=== PATIENT | female | born 1945 | race Caucasian/White ===

== ENCOUNTER 2017-11-05 14:48 | Emergency (ER) | payer MEDICARE, BC ==
[~2017-11-05] VITALS: Ht 157.5 cm; Wt 95.5 kg
[2017-11-05 15:21] VITALS: BP 147/67; Ht 157.5 cm; Wt 95.5 kg
== END 2017-11-05 17:25 | disposition left against medical advice (07) ==
LOC: D.ER 14:48
DX: M54.9 Dorsalgia, unspecified (principal); M54.2 Cervicalgia; V43.52XA Car driver injured in collision with other type car in traffic accident, initial encounter; Y93.89 Activity, other specified; Y92.410 Unspecified street and highway as the place of occurrence of the external cause

== ENCOUNTER → 2019-10-03 10:49 | Outpatient (CLI) | payer MEDICARE, BC ==
[2017-11-05 15:21] VITALS: BMI 38.5
== END | disposition home or self-care (01) ==
LOC: D.MRI 09-29 09:00
PROVIDERS: ATTEND Psychiatry & Neurology Neurology
DX: G50.0 Trigeminal neuralgia (principal)

== ENCOUNTER 2019-12-12 13:32 | Inpatient (IN) | payer MEDICARE, BC ==
[~2019-12-12] VITALS: Ht 157.5 cm; Wt 104.5 kg
[2019-12-25] MEDS ORDERED: LIPITOR80 MG PO (08:38)
[2019-12-25] MEDS ORDERED: ASPIRIN EC81 M1 PO (08:39)
[2019-12-25] MEDS ORDERED: OMEPRAZOLE20 M1 PO (08:39)
[2019-12-25] MEDS ORDERED: SYNTHROID150 MCG PO (08:39)
[2019-12-25] MEDS ORDERED: VITAMIN D5000 UNI1 PO (08:41)
--- NOTE | 2019-12-25 09:08 | NUR ---
VERAS NOTE: O2SAT 97% P72 R20 T98.3 BP 146/72 LT 128/68 RT
[2019-12-25 10:37] LABS: HEMATOCRIT 42.2 % (36.0-48.0); HEMOGLOBIN 13.4 g/dL (12-16); MCH 28.9 pg (26.0-34.0); MCHC 31.8 g/dL (31.0-37.0); MCV 90.9 fL (80.0-100.0); MEAN PLATELET VOLUME 8.6 fL (7.4-10.4); RBC 4.64 10x6/uL (4.00-5.40); RDW 13.9 % (11.5-14.5); WBC 9.4 10x3/uL (4.8-10.8)
[2019-12-25 10:44] LABS: INR 0.93 (0.85-1.17); PROTIME 12.4 SECONDS (11.6-15.0)
[2019-12-25 10:45] LABS: APTT 25.8 SECONDS (22.8-39.4)
[2019-12-25 10:51] LABS: ALBUMIN 3.7 g/dL (3.4-5.0); ANION GAP 11.8 mmol/L (8-16); BILIRUBIN - TOTAL 0.48 mg/dL (0.2-1.3); CALCIUM 9.2 mg/dL (8.5-10.1); CARBON DIOXIDE 28.2 mmol/L (21.0-32.0); CREATININE - SERUM 0.8 mg/dL (0.6-1.3); PROTEIN - SERUM 7.2 g/dL (6.4-8.2)
[2019-12-25 11:30] LABS: BILIRUBIN NEGATIVE (NEGATIVE); GLUCOSE NEGATIVE (NEGATIVE); KETONE NEGATIVE (NEGATIVE); NITRITE NEGATIVE (NEGATIVE); RED CELLS - URINE RARE /hpf (0-5); UROBILINOGEN NORMAL (NORMAL)
[2019-12-25 11:31] LABS: BACTERIA MODERATE /hpf (NEGATIVE)
[2019-12-26] VITALS (51 sets, daily range): BP systolic 106–162; BP diastolic 53–67; BMI 39.8; BMI 42.3
--- NOTE | 2019-12-26 12:48 | NUR ---
PT ARRIVED TO UNIT AROUND 1239 VIA BED. PLACED ON MONITORS. INCISION TO LEFT NECK WITH DRESSING C/D/I. KASSY DRAIN TO TASHA CHEST. HAS RIGHT SUB CVL WITH NS INFUSING AT 30ML/HR, NITRO AT 5ML/HR, AND CLEVIPREX AT 1MG/HR. OPENS EYES AND FOLLOWS COMMANDS. ON 15L O2 VIA SIMPLE MASK. BELL CATHETER WITH CLEAR YELLOW URINE NOTED. SAFETY MEASURES IN PLACE. WILL CONTINUE TO MONITOR.
--- NOTE | 2019-12-26 13:16 | NUR ---
DR. WANG IN UNIT. ORDERED 2.5 LOPRESSOR IV X ONE AT THIS TIME.
--- NOTE | 2019-12-26 17:00 | NUR ---
NOBLE FLORENTINO AT THIS TIME. TOLERATING ICE CHIPS AND WATER.
--- NOTE | 2019-12-26 22:46 | NUR ---
AFTER INCREASE IN CLEVIPREX BP IS DOWN TO 117/54 (75).
[2019-12-27] VITALS (61 sets, daily range): BP systolic 72–172; BP diastolic 37–84; Ht 157.5 cm; Wt 104.5 kg
--- NOTE | 2019-12-27 06:47 | NUR ---
AT 0617 CHG BATH FINISHED AND BELL CARE COMPLETE. PATIENTS BP WAS 160'S AND 170'S. APRESOLINE GIVEN PER ORDER. AT 0639 PATIENT BP DROPPED TO 79/38 (35) NTG AND CLEVIPREX STOPPED. GIVEN A MINUTE AND TARI STARTED. AT 0647 TARI WAS STOPPED DUE TO PRESSURE INCREASING TO 142/83 (103). PATIENT STATED SHE WAS HAVING PAIN ACROSS STOMACH UNDER BREAST AND NAUSEA. ZOFRAN GIVEN PER MD ORDER.
[2019-12-27 07:10] LABS: BASOPHILS 0.2 % (0-2); EOSINOPHILS 0.4 % (0-7); HEMOGLOBIN 11.5 g/dL (12-16); IMMATURE GRANULOCYTES 0.2 % (0-5); LYMPHOCYTES 25.1 % (15-50); MCHC 31.9 g/dL (31.0-37.0); MCV 90.7 fL (80.0-100.0); MEAN PLATELET VOLUME 8.5 fL (7.4-10.4); MONOCYTES 8.7 % (2-11); NEUTROPHILS 65.4 % (40-80); PLATELET COUNT 233 10x3/uL (130-400); RBC 3.97 10x6/uL (4.00-5.40); RDW 14.1 % (11.5-14.5)
[2019-12-27 07:12] LABS: WBC 12.7 10x3/uL (4.8-10.8)
[2019-12-27 07:32] LABS: CALC OSMOLALITY 278 mosm/kg (275-300); CALCIUM 8.3 mg/dL (8.5-10.1); CHLORIDE - SERUM 105 mmol/L (98-107); CREATININE - SERUM 0.7 mg/dL (0.6-1.3); GLUCOSE 132 mg/dL (74-106); MAGNESIUM - SERUM 1.8 mg/dL (1.8-2.4); PHOSPHOROUS 2.9 mg/dL (2.5-4.9); SODIUM 139 mmol/L (136-145); UREA NITROGEN 10 mg/dL (7-18); eGFR NON AFRICAN AMERICAN 87 mL/min (90-120)
--- NOTE | 2019-12-27 08:00 | NUR ---
ASSESSMENT PERFORMED. BP FLUCTUATING BETWEEN 96 AND 110 SYSTOLIC. CLEVIPRES DECREASED TO 5MCG/MIN. NTG CONTINUES AT 20MCG/MIN, PLASMALYTE AT 30ML/HR TO RIGHT SC CVL. ANTIBIOTIC INFUSION TO LEFT HAND. ART LINE INTACT. BELL CATHETER PRESENT DRAINING CLEAR URINE. SLIGHT SWELLING OF LEFT NECK, DRESSING INTACT, CRANIAL NERVE FUNCTION ASSESSED AND ALL INTACT. SINUS RHYTHM ON MONITOR.
--- NOTE | 2019-12-27 08:05 | NUR ---
CLEVIPLEX STOPPED. BP 93/50.
--- NOTE | 2019-12-27 09:17 | NUR ---
0900 MEDICATIONS GIVEN. REMOVED ONE 20MG TAB ATORVISTATIN INSTEAD OF FOUR. RETURNED TO [facility] TO PULL REMAINING 3 20MG TABS. WHEN EXPLAINING MEDS PATIENT STATED SHE ONLY TAKES 40MG OF ATORVISTATIN DUE TO MUSCLE PAIN. PATIENT TOOK REMAINING MEDS. AFTER PATIENT SWALLOWED THIS NURSE NOTED THAT THE MEDICATION REMOVED ON THE SECOND TRIP TO THE [facility] WAS VENLAFAXINE - NOT ATORVASTATIN. ON INVESTIGATION, THIS NURSE DISCOVERED THAT MEDICATION WAS REMOVED FROM THE WRONG BIN. PATIENT RECEIVED ONE 20MG ATORVISTATIN AND ONE 37.5MG VENLAFAXINE. SECOND ATORVASTATIN 20MG REMOVED AND ADMINISTERED. GLORIA RN, NURSE FOR DR. WANG WAS NOTIFIED OF MEDICATION ERROR. MEDICATION ERROR WAS ALSO EXPLAINED TO THE PATIENT.
--- NOTE | 2019-12-27 10:44 | OP ---
PATIENT NAME: TONNY FRENCH MEDICAL RECORD: [id number] :49 LOCATION:[facility] ADMISSION DATE:12/26/19 SURGEON: JOHN WANG MD DATE OF OPERATION: 12/26/2019 SURGEON: John Wang MD PROCEDURE: Left carotid endarterectomy. PREOPERATIVE DIAGNOSIS: Left carotid stenosis. POSTOPERATIVE DIAGNOSES: Left carotid endarterectomy. ANESTHESIA: General endotracheal anesthesia. ESTIMATED BLOOD LOSS: 20 cc. COMPLICATIONS: None. SPECIMENS: Plaque. CONDITION: Stable. DISPOSITION: CV ICU. OPERATIVE FINDINGS: 1. Calcified and severely stenotic plaque in the proximal internal carotid artery that feathered well distally. The plaque was tacked and a CorMatrix patch was used for closure. 2. Neurologically intact to CV ICU. OPERATIVE INDICATION: Severe carotid stenosis. PROCEDURE IN DETAIL: The patient was brought to the operating suite. General anesthesia was obtained, the patient was prepped and draped. An oblique incision was made in the left neck, taken down through the subcutaneous tissue to several large facial venous branch were divided between ligatures and the large one was divided between suture ligatures. The common carotid was dissected out and encircled with an umbilical tape. External carotid and thyroid branch were dissected out and encircled with vascular tapes and the hypoglossal was kept out of harm's way. The internal carotid was dissected out distally and heparin was given. After the heparin had circulated, backbleeding was controlled with a bulldog clamp and inflow with a vascular clamp and backbleeding of the external carotid and thyroid branch were controlled with vessel loops. EEG and cerebral oximetry remained stable. The 2 minute elsa revealed no change. Therefore, arteriotomy was made into the common carotid artery and the plaque was divided there. Eversion endarterectomy of the external carotid was performed and the plaque feathered well distally. Thorough irrigation was undertaken. All bits of loose debris were removed. The plaque was tacked distally with 7-0 Prolenes. The patch was fashioned to the appropriate size and sutured along the edge of the arteriotomy. Prior to completing the anastomosis, backbleeding was allowed from all 3 major vessels and then thorough irrigation of the endarterectomy bed. Anastomosis completed and flow was restored first to the external carotid and then to the internal carotid. Interrupted sutures were used for hemostasis. Protamine was given. OPERATIVE REPORT [id number] [id number] Thorough irrigation was undertaken. Hemostasis was assured. A drain was placed through a separate stab wound. The neck was then closed in 3 layers including Dermabond on the skin. The patient is neurologically intact and returned to CV ICU. TRANSINT:[id number] Voice Confirmation ID: [id number] DOCUMENT ID: [id number] JOHN WANG MD at 1044 CC: NIRMALA WELLER DO and HERON JEFFERS MD [id number] DICTATION DATE: 12/26/19 1719 STONE GLUER: 12/27/19 0020 ADM IN [facility] [address] [place] [address]
--- NOTE | 2019-12-27 10:45 | NUR ---
DR. WANG HERE. KASSY DRAIN REMOVED. STERILE 4X4 AND TEGADERM DRESSING APPLIED. TNG DRIP DECREASE TO 13.3MCG/MIN.
--- NOTE | 2019-12-27 11:00 | NUR ---
REASSESSMENT PERFORMED. ANTIBIOTIC INFUSION COMPLETE. PIV SITE TO LEFT ANTERIOR HAND AND ARTERIAL LINE TO RIGHT RADIAL D/C'D PER ORDER. HEMOSTASIS ACHIEVED AND DRESSINGS APPLIED. C/O NAUSEA FOLLOWING. HAD A FEW DRY HEAVES. LEFT NECK SWELLING INCREASED. ICE PACK TO NECK AND THROAT.
--- NOTE | 2019-12-27 11:30 | NUR ---
NTG DRIP D/C'S. NIBP 139/73. PER DR. WANG GIVE PRN ANTIHYPERTENSIVES IF NEEDED. IF BP CONTINUES ABOVE 140 SYSTOLIC AFTER PRN CALL.
--- NOTE | 2019-12-27 13:30 | NUR ---
TO BEDSIDE COMMODE TWICE FOR BM. PASSING GAS ONLY.
--- NOTE | 2019-12-27 15:10 | NUR ---
REASSESSMENT COMPLETED. NO CHANGES. NEED FOR BELL CATHETER ASSESSED. PATIENT IS OUT OF BED TO BEDSIDE COMMODE WITH ASSISTANCE. BELL CATHETER NO LONGER REQUIRED FOR ACCURATE I&O. CATHETER REMOVED. INSTRUCTIONS TO PATIENT TO CALL FOR ASSISTANCE TO USE BEDSIDE COMMODE NEEDED.
--- NOTE | 2019-12-27 17:35 | NUR ---
UP TO BSC WITH ASSIST. C/O PAIN TO LEFT JAW. REFUSED PAIN MED AT THIS TIME. ICE PACK TO LEFT NECK THROUGHOUT DAY.
--- NOTE | 2019-12-27 18:00 | NUR ---
BACK TO BE WITHOUT ASSISTANCE. ICE PACK TO LEFT NECK. HOB AT 30 DEGREES. VOIDED 250ML CLEAR URINE.
--- NOTE | 2019-12-27 19:00 | NUR ---
ASSESSMENT COMPLETED PER FLOWSHEET. PT A/OX4, DENIES ANY DISCOMFORT AT THIS TIME. LEFT NECK INCISION DRESSING C,D,I. CONT ICE PACK PT STATES THAT IS HELPING WITH SWELLING. PPP. CALL LIGHT IN REACH. CONT TO MONITOR.
--- NOTE | 2019-12-27 21:00 | NUR ---
ASSISSTED TO BSC. PT VOIDS WITHOUT DIFFIC. PT INES WELL. REPOSITIONED SELF IN BED. CALL LIGHT IN REACH. CPOC.
--- NOTE | 2019-12-27 23:00 | NUR ---
REASSESSMENT COMPLETED. SEE FLOWSHEET FOR ALL FINDINGS. NO ACUTE CHANGES NOTED IN PT'S STATUS. PT C/O PAIN AT INCISION SITE 5/10 ON SCALE. CONT ICE PACK. ULTRAM 1 TAB GIVEN PER ORDER PER PT'S REQUEST. CPOC.
[2019-12-28] VITALS (24 sets, daily range): BP systolic 93–143; BP diastolic 39–79
--- NOTE | 2019-12-28 02:00 | NUR ---
UP TO BEDSIDE COMMODE WITH MINIMAL ASSISTANCE. TOLERATES WELL, NO C/O PAIN. C/O NAUSEA, PRN ZOFRAN REQUESTED. PARTIAL LINEN CHANGE PROVIDED AT THIS TIME. DENIES FURTHER NEEDS.
--- NOTE | 2019-12-28 02:06 | NUR ---
PRN ZOFRAN GIVEN PER ORDER. ICE CHIPS PROVIDED UPON REQUEST. VSS, DENIES FURTHER NEEDS AT THIS TIME. CALL LIGHT AND BEDSIDE TABLE WITHIN PT REACH. CPOC.
--- NOTE | 2019-12-28 03:46 | NUR ---
PT UP IN CHAIR PER REQUEST, VSS, NO C/O PAIN. RESTING COMFORTABLY. SOME SWELLING NOTED TO L NECK, FRESH ICE PACK APPLIED TO AREA. VSS. PT DENIES FURTHER NEEDS AT THIS TIME. CALL LIGHT AND BEDSIDE TABLE WITHIN PT REACH. CPOC.
--- NOTE | 2019-12-28 04:30 | NUR ---
PT AMBULATES BACK TO BED WITH MINIMAL ASSITANCE. VSS, NO C/O PAIN. CPOC.
[2019-12-28 06:28] LABS: BASOPHILS 0.2 % (0-2); EOSINOPHILS 0.6 % (0-7); HEMATOCRIT 35.8 % (36.0-48.0); HEMOGLOBIN 11.1 g/dL (12-16); IMMATURE GRANULOCYTES 0.4 % (0-5); LYMPHOCYTES 24.3 % (15-50); MCH 28.6 pg (26.0-34.0); MCV 92.3 fL (80.0-100.0); MEAN PLATELET VOLUME 8.6 fL (7.4-10.4); MONOCYTES 8.5 % (2-11); PLATELET COUNT 239 10x3/uL (130-400); RBC 3.88 10x6/uL (4.00-5.40); RDW 14.3 % (11.5-14.5); WBC 11.2 10x3/uL (4.8-10.8)
--- NOTE | 2019-12-28 06:46 | NUR ---
PT SLEEPING QUIETLY WITH VSS. REPOSITIONS SELF INDEPENDENTLY. CALL LIGHT WITHIN PT REACH, CPOC.
[2019-12-28 06:50] LABS: ANION GAP 9.5 mmol/L (8-16); CALCIUM 8.6 mg/dL (8.5-10.1); CARBON DIOXIDE 29.5 mmol/L (21.0-32.0); CREATININE - SERUM 0.8 mg/dL (0.6-1.3); MAGNESIUM - SERUM 2.1 mg/dL (1.8-2.4); PHOSPHOROUS 2.3 mg/dL (2.5-4.9)
--- NOTE | 2019-12-28 07:15 | NUR ---
ASSESSMENT COMPLETE PER FLOWSHEET. L SIDE OF NECK SLIGHTLY SWOLLEN. L FACIAL DROOPING NOTED. UP TO CHAIR FOR BREAKFAST. NO CO AT TIME.
--- NOTE | 2019-12-28 07:30 | NUR ---
02 AT 2 LITERS ON PATIENT. OXYGEN OFF O2 SAT NOW 84 PERCENT,. IS GIVEN TO PATIENT AND INSTRUCT MUST DO. PULLING 1000 ON IS.
--- NOTE | 2019-12-28 09:00 | NUR ---
O2 SAT IS 90. WHEN PATIENT DOES IS PULLING 1000, O2 SAT 94 PERCENT.
--- NOTE | 2019-12-28 10:10 | NUR ---
PT WALKED LEVELOCK WITH O2 AT 2 LITERS. UP IN CHAIR. INSTRUCT WILL WALK AGAIN AROUND LUNCH. NEED TO SIT IN CHAIR MOST OF DAY.
--- NOTE | 2019-12-28 10:36 | NUR ---
Nutrition Follow-up: POD 2 L carotid endarterectomy. Pt reports difficulty eating 2/2 painful jaw; also c/o sore throat. Requests mashed potatoes for lunch. Agreed to try Ensure. Last BM prior to surgery. Diet: Cardiac Wt: 230# (12/27); 231# (12/25) Labs reviewed Meds reviewed -Encourage PO intake and honor food preferences within diet restrictions. -Monitor wt. -Provided written information on wt loss per pt request. -RD following.
--- NOTE | 2019-12-28 11:00 | NUR ---
UP TO AMBULATE. NO O2 ON. O2 SAT 91 PERCENT.
--- NOTE | 2019-12-28 11:03 | NUR ---
O2 SAT 94 PERCENT WITHOUT O2. UP IN CHAIR. VISITING WITH .
[2019-12-28] MEDS ORDERED: LOPRESSOR25 MG PO ×3 (13:05→13:19)
[2019-12-28] MEDS ORDERED: ULTRAM50 MG PO (13:05)
--- NOTE | 2019-12-28 14:45 | NUR ---
DR WANG HERE UPDATE GIVEN ON PT AND O2 SATS. O2 BACK ON DUE TO PT NOT BEING ABLE TO MAINTAIN SATS. O2 SAT NOW 97 PERCENT. CXR AND LASIX ORDERED.
--- NOTE | 2019-12-28 18:30 | NUR ---
BACK TO BED VOICES NO CO AT TIME.
--- NOTE | 2019-12-28 19:20 | NUR ---
PT RECEIVED WITH EYES CLOSED AND CHEST RISING. EASILY AWOKEN TO VERBAL STIMULI. NO COMPLAINTS OF PAIN, DID COMPLAIN OF BEING COLD WITH THERMOSTAT RAISED TO TOP, WHICH IT WAS ALREADY NEAR. FRESH WATER PROVIDED. NO OTHER NEEDS OR CONCERNS NOTED. BEDSIDE COMMODE EMPTIED. CALL LIGHT IN REACH. WILL CONTINUE TO OBSERVE.
--- NOTE | 2019-12-28 20:55 | NUR ---
PT RECEIVED SCHEDULED MEDICATION, WITHOUT DIFFICULTY. NO NEEDS OR CONCERNS MADE KNOWN. CALL LIGHT IN REACH. WILL CONTINUE TO OBSERVE.
--- NOTE | 2019-12-28 23:50 | NUR ---
PT RESTING WITH EYES CLOSED AND CHEST RISING. NO S/S OF DISTRESS NOTED. CALL LIGHT IN REACH. WILL CONTINUE TO OBSERVE.
[2019-12-29] VITALS (10 sets, daily range): BP systolic 104–142; BP diastolic 35–97
--- NOTE | 2019-12-29 01:15 | NUR ---
PT UP TO BEDSIDE CHAIR. REQUEST SNACK. AWAIS CRACKER AND PUDDING GIVEN. NO OTHER NEEDS MADE KNOWN. WILL CONTINUE TO OBSERVE.
--- NOTE | 2019-12-29 03:19 | NUR ---
PT IN BED WITH EYES CLOSED AND CHEST RISING. NO S/S OF DISTRESS. CALL LIGHT IN REACH. WILL CONTINUE TO OBSERVE.
--- NOTE | 2019-12-29 05:45 | NUR ---
SCHEDULED MEDICATIONS GIVEN TOLERATED WELL. PT UP TO CHAIR. PT STATED THAT SHE DID NOT WANT BATH AT THIS TIME.
[2019-12-29 06:53] LABS: CALC OSMOLALITY 276 mosm/kg (275-300); CARBON DIOXIDE 33.5 mmol/L (21.0-32.0); CHLORIDE - SERUM 101 mmol/L (98-107); CREATININE - SERUM 0.7 mg/dL (0.6-1.3); GLUCOSE 108 mg/dL (74-106); MAGNESIUM - SERUM 1.9 mg/dL (1.8-2.4); PHOSPHOROUS 2.6 mg/dL (2.5-4.9); POTASSIUM - SERUM 3.4 mmol/L (3.5-5.1); SODIUM 139 mmol/L (136-145); UREA NITROGEN 7 mg/dL (7-18); eGFR NON AFRICAN AMERICAN 87 mL/min (90-120)
[2019-12-29 06:58] LABS: BASOPHILS 0.2 % (0-2); EOSINOPHILS 1.4 % (0-7); HEMATOCRIT 34.7 % (36.0-48.0); HEMOGLOBIN 10.9 g/dL (12-16); IMMATURE GRANULOCYTES 0.3 % (0-5); LYMPHOCYTES 30.6 % (15-50); MCH 28.8 pg (26.0-34.0); MCHC 31.4 g/dL (31.0-37.0); MCV 91.6 fL (80.0-100.0); MEAN PLATELET VOLUME 8.7 fL (7.4-10.4); MONOCYTES 10.3 % (2-11); NEUTROPHILS 57.2 % (40-80); PLATELET COUNT 221 10x3/uL (130-400); RBC 3.79 10x6/uL (4.00-5.40); RDW 13.9 % (11.5-14.5); WBC 9.7 10x3/uL (4.8-10.8)
--- NOTE | 2019-12-29 07:10 | NUR ---
BEDSIDE REPORT RECEIVED FROM OFF-GOING NURSE. PATIENT UP IN RECLINER AND IN GOOD SPIRITS.
--- NOTE | 2019-12-29 09:05 | NUR ---
TO RADIOLOGY VIA WHEELCHAIR WITH O2 AT 2L/M FOR CHEST XRAY. TOLERATED WELL.
--- NOTE | 2019-12-29 09:26 | NUR ---
SPO2 96% ON 2L/M. DECREASED O2 TO 1L/M. PATIENT RESTING IN RECLINER CHAIR.
--- NOTE | 2019-12-29 09:35 | NUR ---
MAINTAINING SPO2 OF 95% ON 1 L/M O2. O2 D/C'D.
--- NOTE | 2019-12-29 10:00 | NUR ---
MAINTAINING SPO2 OF 94-96% ON RA. AMBULATED AROUND LOOP. DENIES SOB. TALKING COMFORTABLY WHILE AMBULATING. BACK TO ROOM. INITIAL SPO2 IS 85% BUT WITHIN 30 SECONDS INCREASED TO 95-96%. DR. NUNEZ HERE AND NOTIFIED. PATIENT IS RESTING IN RECLINER IN ROOM.
--- NOTE | 2019-12-29 11:00 | NUR ---
DISCHARGE INSTRUCTIONS GIVEN BY MARY CASTRO. RIGHT SUBCLAVIAN CVL REMOVED USING STANDARD PROCEDURE. PRESSURE HELD X 5 MINUTES AND NO BLEEDING. OCCLUSIVE DRESSING APPLIED USING STERILE 4X4 AND TEGADERM. INSTRUCTED TO LIE FLAT FOR 15 MINUTED.
--- NOTE | 2019-12-29 12:25 | NUR ---
DISCHARE INSTRUCTIONS AND HOME MEDICATIONS REVIEWED WITH PATIENT. DISCHARGED TO HOME VIA WHEELCHAIR TO PRIVATE CAR.
--- NOTE | 2019-12-30 19:52 | MORECARE ---
CASE MANAGEMENT DISCHARGE SUMMARY PATIENT: TONNY FRENCH UNIT: [id number] ADM DATE: 12/26/19 AGE: 74 : 47 SEX: F ROOM/BED: [facility] AUTHOR: FRANC FUNK PHYSICIAN: REFERRING PHYSICIAN: CAROLINA WANG MD DATE OF SERVICE: 12/30/19 Discharge Plan Patient Name: TONNY FRENCH Facility: [facility]:[place] : 1945 Planned Disposition: Home Anticipated Discharge Date: Discharge Date: 12/29/2019 Expected LOS: Initial Reviewer: [email or web address] Initial Review Date: 12/29/2019 Generated: 12/30/19 8:52 pm DCPIA - Discharge Planning Initial Assessment Updated by [email or web address]: Missy Vaughn on 12/30/19 7:52 pm * Is the patient Alert and Oriented? Yes * How many steps to enter\exit or inside your home? * [facility] * Pharmacy [facility] * Preadmission Environment Home with Family * ADLs Independent * Equipment Walker * List name and contact numbers for known caregivers / representatives who currently or will assist patient after discharge: LUIS ALBERTO GILLIAN - [phone], * Verbal permission to speak to the caregivers and representatives has been obtained from the patient. N/A * Community resources currently utilized None * Additional services required to return to the preadmission environment? No * Can the patient safely return to the preadmission environment? Yes * Has this patient been hospitalized within the prior 30 days at any hospital? No Coverage Notice Reviewer: [email or web address] - Missy Vaughn Notice Issued Date-Time: 12/29/2019 11:18 Notice Type: IM Discharge Notice Notice Delivered To: Patient Relationship to Patient: Self [employer] Field Coordinator Name: Delivery Method: HAND - Hand Delivered Anni Days: Prior Verbal Notification: Recipient Understood Notice: Yes Recipient Signature: Yes Med Rec Note Co-signed by Attending: Coverage Notice Comment: Patient Name: TONNY FRENCH Page [id number] at 1952 All edits/amendments must be made on the electronic document DICTATION DATE: 12/30/191951 QUIRK SANDER: DIMITRIOS 12/30/191951 RPT#: [id number] DC DATE:12/29/19 STATUS: DIS IN [facility] [address] [address] END OF REPORT
--- NOTE | 2019-12-30 19:59 | MORECARE ---
CASE MANAGEMENT DISCHARGE SUMMARY PATIENT: TONNY FRENCH UNIT: [id number] ADM DATE: 12/26/19 AGE: 74 : 47 SEX: F ROOM/BED: [facility] AUTHOR: BLESSING,DOC PHYSICIAN: REFERRING PHYSICIAN: CAROLINA WANG MD DATE OF SERVICE: 12/30/19 Discharge Plan Patient Name: TONNY FRENCH Facility: [facility]:[place] : 1945 Planned Disposition: Home Anticipated Discharge Date: Discharge Date: 12/29/2019 Expected LOS: Initial Reviewer: [email or web address] Initial Review Date: 12/29/2019 Generated: 12/30/19 8:58 pm Comments DCP- Discharge Planning Updated by [email or web address]: Missy Vaughn on 12/30/19 6:[address] LATE ENTRY 12/29/19 Patient Name: TONNY FRENCH Admission Status: Urgent Accout number: [id number] Admission Date: 12-26-2019 : 1945 Admission Diagnosis:OCCLUSION AND STENOSIS OF LEFT CAROTID ARTERY Attending: CAROLINA WANG Current LOS: 3 Anticipated DC Date: Planned Disposition: Home Primary Insurance: MEDICARE A & B Discharge Planning Comments: CM met with patient to complete initial dc planning assessment. CM educated patient on the CM role and verbal consent given by patient to complete assessment. Patient lives at home with family. Patient is independent. At discharge patient plans to return home and feels this is a safe discharge. CM discussed availability of home health, rehab services, and medical equipment. Patient will have family to transport home. Patient denied known discharge needs at this time. D/C IMM signed 12/29/19 @ 1118. CM will continue to follow and will assist as needed with dc plans/needs. Marketing Mgr: Missy Vaughn DCPIA - Discharge Planning Initial Assessment Updated by [email or web address]: Missy Vaughn on 12/30/19 7:52 pm * Is the patient Alert and Oriented? Yes * How many steps to enter\exit or inside your home? * PCP [facility] * Pharmacy [facility] * Preadmission Environment Home with Family * ADLs Independent * Equipment Walker * List name and contact numbers for known caregivers / representatives who currently or will assist patient after discharge: KATHLEEN TIM FRENCH - [phone], * Verbal permission to speak to the caregivers and representatives has been obtained from the patient. N/A * Community resources currently utilized None * Additional services required to return to the preadmission environment? No * Can the patient safely return to the preadmission environment? Yes * Has this patient been hospitalized within the prior 30 days at any hospital? No Coverage Notice Reviewer: [id number] Huber Vaughn Notice Issued Date-Time: 12/29/2019 11:18 Notice Type: IM Discharge Notice Notice Delivered To: Patient Relationship to Patient: Self Manager Medical Device Name: Delivery Method: HAND - Hand Delivered Anni Days: Prior Verbal Notification: Recipient Understood Notice: Yes Recipient Signature: Yes Med Rec Note Co-signed by Attending: Coverage Notice Comment: Last DP export: 12/30/19 6:52 pm Patient Name: TONNY FRENCH Page [phone] at 195 All edits/amendments must be made on the electronic document DICTATION DATE: 12/30/191957 STORE KEEPER: DIMITRIOS 12/30/191957 RPT#: [id number] DC DATE:12/29/19 STATUS: DIS IN [facility] [address] [place] [address] END OF REPORT
== END 2019-12-29 12:25 | disposition home or self-care (01) | DRG 38 ==
LOC: D.CVICU 12-26 06:30 → D.SDCHOLD 12-26 06:30 → D.CVICU 12-26 12:03 → D.SDCHOLD 12-27 07:30 → D.CVICU 12-29 12:25
PROVIDERS: Emergency Medicine; ADMIT Thoracic Surgery (Cardiothoracic Vascular Surgery); ATTEND Thoracic Surgery (Cardiothoracic Vascular Surgery)
PROC: 03UL0JZ Supplement Left Internal Carotid Artery with Synthetic Substitute, Open Approach (ICD-10-PCS; 2019-12-26)
PROC: 03CL0ZZ Extirpation of Matter from Left Internal Carotid Artery, Open Approach (ICD-10-PCS; principal; 2019-12-26 11:35)
DX: I65.22 Occlusion and stenosis of left carotid artery (principal); Z68.41 Body mass index [BMI] 40.0-44.9, adult; E78.5 Hyperlipidemia, unspecified; R73.03 Prediabetes; K21.9 Gastro-esophageal reflux disease without esophagitis; G47.33 Obstructive sleep apnea (adult) (pediatric); E66.01 Morbid (severe) obesity due to excess calories; M19.90 Unspecified osteoarthritis, unspecified site; G50.0 Trigeminal neuralgia; R09.02 Hypoxemia

== ENCOUNTER 2020-01-07 15:04 | Inpatient (IN) | payer MEDICARE, BC ==
[~2020-01-07] VITALS: Ht 157.5 cm; Wt 98.4 kg
[~2020-01-07 15:04] MED LIST: ASPIRIN EC81 M1 PO; LIPITOR80 MG PO; LOPRESSOR25 MG PO; OMEPRAZOLE20 M1 PO; SYNTHROID150 MCG PO; ULTRAM50 MG PO; VITAMIN D5000 UNI1 PO
[2020-01-07 16:09] LABS: BASOPHILS 0.4 % (0-2); EOSINOPHILS 2.9 % (0-7); HEMOGLOBIN 12.4 g/dL (12-16); IMMATURE GRANULOCYTES 0.4 % (0-5); LYMPHOCYTES 43.9 % (15-50); MCHC 31.8 g/dL (31.0-37.0); MCV 91.3 fL (80.0-100.0); MEAN PLATELET VOLUME 8.6 fL (7.4-10.4); MONOCYTES 6.4 % (2-11); RBC 4.27 10x6/uL (4.00-5.40); RDW 14.1 % (11.5-14.5); WBC 8.3 10x3/uL (4.8-10.8)
[2020-01-07 16:10] LABS: PLATELET COUNT 301 10x3/uL (130-400)
[2020-01-07 16:20] LABS: ANION GAP 11.9 mmol/L (8-16); CALCIUM 9.1 mg/dL (8.5-10.1); CARBON DIOXIDE 28.5 mmol/L (21.0-32.0); CREATININE - SERUM 0.8 mg/dL (0.6-1.3); POTASSIUM - SERUM 4.4 mmol/L (3.5-5.1)
[2020-01-07 16:21] LABS: INR 0.91 (0.85-1.17); PROTIME 12.3 SECONDS (11.6-15.0)
[2020-01-07 16:27] LABS: ALBUMIN 3.5 g/dL (3.4-5.0); BILIRUBIN - TOTAL 0.29 mg/dL (0.2-1.3); PROTEIN - SERUM 7.1 g/dL (6.4-8.2)
--- NOTE | 2020-01-07 17:44 | NUR ---
PATIENT ARRIVED TO UNIT AT 1535 VIA WHEELCHAIR FROM ED AND ADMITTED TO ROOM 2123. PATIENT A&O X 4, AMBULATORY. PATIENT ANSWERS ALL QUESTIONS APPROPRIATELY. INCISION WITH APPROXIMATED EDGES NOTED TO LEFT LATERAL NECK FROM RECENT CAROIDENDARECTOMY. NO DRAINAGE NOTED FROM INCISION AT THIS TIME. NO DEVIATION IN SKIN TEMPERATUR FROM LEFT TO RIGHT. PATIENT ORIENTED TO ROOM. CALL LIGHT WITHIN REACH. PATIENT SPOUSE AT BEDSIDE. NO DISTRESS.
[2020-01-07] MEDS ORDERED: OMNICEF300 MG PO (17:59)
[2020-01-07] MEDS ORDERED: ACETAMINOPHEN500 M1 PO (18:00)
[2020-01-07 18:35] VITALS: BP 129/66; Ht 157.5 cm; Wt 98.4 kg
--- NOTE | 2020-01-07 20:34 | NUR ---
REPORT RECEIVED AND INITIAL ROUNDS COMPLETED. PT RESTING WITH NO DISTRESS. CPOC.
[2020-01-07 20:48] VITALS: BP 113/48
[2020-01-08] VITALS (7 sets, daily range): BP systolic 112–140; BP diastolic 46–94
--- NOTE | 2020-01-08 04:41 | NUR ---
PT HAS RESTED WELL THIS NIGHT. LEFT NECK AREA HAS NOT SHOWED ANY NOTICEABLE DRAINAGE FROM INCISION AREA. IVF INFUSING/IV ABT ORDERED. NO C/O PAIN. HAS BEEN INDEPENDENT TO THE BATHROOM. PLEASANT AND COOPERATIVE AND HOPING TO HEAL QUICKLY. CALL LIGHT IN REACH.
[2020-01-08 05:39] LABS: BASOPHILS 0.2 % (0-2); EOSINOPHILS 2.7 % (0-7); HEMATOCRIT 37.5 % (36.0-48.0); HEMOGLOBIN 12.1 g/dL (12-16); IMMATURE GRANULOCYTES 0.5 % (0-5); MCH 29.2 pg (26.0-34.0); MCHC 32.3 g/dL (31.0-37.0); MCV 90.4 fL (80.0-100.0); MEAN PLATELET VOLUME 8.5 fL (7.4-10.4); MONOCYTES 6.3 % (2-11); NEUTROPHILS 45.3 % (40-80); PLATELET COUNT 297 10x3/uL (130-400); RBC 4.15 10x6/uL (4.00-5.40); WBC 8.6 10x3/uL (4.8-10.8)
[2020-01-08 05:53] LABS: ALBUMIN 3.3 g/dL (3.4-5.0); ANION GAP 10.4 mmol/L (8-16); BILIRUBIN - TOTAL 0.38 mg/dL (0.2-1.3); CALCIUM 8.9 mg/dL (8.5-10.1); CARBON DIOXIDE 30.4 mmol/L (21.0-32.0); CREATININE - SERUM 0.8 mg/dL (0.6-1.3); POTASSIUM - SERUM 4.8 mmol/L (3.5-5.1); PROTEIN - SERUM 6.3 g/dL (6.4-8.2)
--- NOTE | 2020-01-08 09:57 | NUR ---
ARRIVE BACK TO ROOM FROM PROCEDURE. RT IJ TRIALYSIS DRESSING CHANGED. LT CHEST HEMOSPLIT PLACED FREE FROM BLEEDING. BP-140/94, HR-108, O2-95% WITH 2L NC. REPORTS PAIN. NOTIFY SURGEON OF PAIN. CONTINUE PLAN OF CARE AND SAFETY PRECAUTIONS.
--- NOTE | 2020-01-08 18:06 | NUR ---
PT QUESTIONED NEED FOR NECK U/S AND DIDN'T WANT UNLESS SAID IT WAS ALRIGHT TO PUT LOTION ON AND SCAN HER NECK. DR WANG WAS CONTACTED AND CANCELLED EXAM - SAID PT HAD CT AND THIS WAS NOT NEEDED. GCATES RDMS 1800 01/08/20
[2020-01-08 18:23] LABS: INR 0.95 (0.85-1.17); PROTIME 12.7 SECONDS (11.6-15.0)
--- NOTE | 2020-01-08 19:26 | NUR ---
REPORT RECEIVED AND ROUNDING COMPLETE. PATIENT LAYING IN BED IN HIGH FOWLERS, NO DISTRES NOTED, PATIENT IS TALKING ON HER CELLPHONE. RIGHT HAND PIV. PATENT, RUNNING FLUIDS. RIGHT WRIST PIV SALINE LOCKED. DRESSING TO THE LEFT NECK C/D/I. NO DISTRESS NOTED, NO NEEDS VOICED.
[2020-01-09] VITALS: BP 143/57
[2020-01-09 04:00] VITALS: BP 139/68
[2020-01-09 05:56] LABS: BASOPHILS 0.3 % (0-2); EOSINOPHILS 2.7 % (0-7); HEMATOCRIT 35.8 % (36.0-48.0); HEMOGLOBIN 11.4 g/dL (12-16); IMMATURE GRANULOCYTES 0.3 % (0-5); LYMPHOCYTES 44.9 % (15-50); MCH 28.8 pg (26.0-34.0); MCHC 31.8 g/dL (31.0-37.0); MCV 90.4 fL (80.0-100.0); MEAN PLATELET VOLUME 8.6 fL (7.4-10.4); MONOCYTES 7.1 % (2-11); NEUTROPHILS 44.7 % (40-80); PLATELET COUNT 291 10x3/uL (130-400); RBC 3.96 10x6/uL (4.00-5.40); WBC 7.3 10x3/uL (4.8-10.8)
[2020-01-09 06:19] LABS: ANION GAP 13.5 mmol/L (8-16); CALCIUM 8.4 mg/dL (8.5-10.1); CARBON DIOXIDE 25.6 mmol/L (21.0-32.0); CREATININE - SERUM 0.9 mg/dL (0.6-1.3); PHOSPHOROUS 3.5 mg/dL (2.5-4.9); POTASSIUM - SERUM 4.1 mmol/L (3.5-5.1)
--- NOTE | 2020-01-09 07:20 | NUR ---
RECIEVE REPORT. ALERT AND OREINTED X 4. SITTING UP IN BED. DENIES ANY NEEDS. WAITING FOR CONSENT TO BE BROUGHT UP TO SIGN FOR PROCEDURE. SINUS RYTHM ON TELEMETRY. CONTINUE PLAN OF CARE AND SAFETY PRECAUTIONS.
[2020-01-09 09:36] VITALS: BP 141/59
[2020-01-09 12:00] VITALS: BP 105/63
[2020-01-09 16:00] VITALS: BP 144/57
--- NOTE | 2020-01-09 17:51 | NUR ---
ARRIVE BACK TO ROOM VIA BED FROM PROCEDURE. ALERT AND ORIENTED X4. LT NECK DRESSING C/D/I. FREE FROM BLEEDING. BP-133/69, HR-83, O2-93% RA. DENIES ANY NEEDS. CONTINUE PLAN OF CARE AND SAFETY PRECAUTIONS.
--- NOTE | 2020-01-09 19:38 | NUR ---
REPORT RECEIVED AND ROUNDING COMPLETE. PATIENT LAYING IN BED, IN LOW FOWLERS, STATES SURGERY WENT WELL AND FEELING GOOD. HAS SOME LOOSE STOOLS JUST NOW. NO NEEDS VOICED, LEFT AC PIV THAT IS PATENT AND RUNNING FLUIDS AT THIS TIME. DRESSING TO THE LEFT NECK IS C/D/I. NO DISTRESS NOTED. CALL LIGHT WITHIN REACH AND BED IN LOWEST LOCKED POSITION.
[2020-01-09 20:00] VITALS: BP 147/65
[2020-01-10] VITALS: BP 148/66
[2020-01-10 04:00] VITALS: BP 138/60
[2020-01-10 07:00] LABS: BASOPHILS 0.4 % (0-2); EOSINOPHILS 2.3 % (0-7); HEMATOCRIT 35.2 % (36.0-48.0); IMMATURE GRANULOCYTES 0.1 % (0-5); MCH 28.5 pg (26.0-34.0); MCHC 31.3 g/dL (31.0-37.0); MCV 91.2 fL (80.0-100.0); MEAN PLATELET VOLUME 8.6 fL (7.4-10.4); NEUTROPHILS 51.2 % (40-80); PLATELET COUNT 282 10x3/uL (130-400); RBC 3.86 10x6/uL (4.00-5.40); RDW 13.9 % (11.5-14.5); WBC 8.1 10x3/uL (4.8-10.8)
[2020-01-10 07:31] LABS: ANION GAP 12.7 mmol/L (8-16); CARBON DIOXIDE 25.2 mmol/L (21.0-32.0); CREATININE - SERUM 0.9 mg/dL (0.6-1.3); MAGNESIUM - SERUM 1.9 mg/dL (1.8-2.4); PHOSPHOROUS 3.1 mg/dL (2.5-4.9); POTASSIUM - SERUM 3.9 mmol/L (3.5-5.1)
[2020-01-10 08:50] VITALS: BP 155/69
[2020-01-10 11:27] VITALS: BP 128/71
--- NOTE | 2020-01-10 15:21 | OP ---
PATIENT NAME: TONNY FRENCH MEDICAL RECORD: [id number] :49 LOCATION:D.M2 D.2124 ADMISSION DATE:01/07/20 SURGEON: CAROLINA WANG MD DATE OF OPERATION: 01/09/2020 SURGEON: Carolina Wang MD PROCEDURE: Debridement and closure of left neck wound and drainage of seroma. PREOPERATIVE DIAGNOSIS: Seroma status post left carotid endarterectomy. POSTOPERATIVE DIAGNOSIS: Seroma status post left carotid endarterectomy. ANESTHESIA: Intravenous sedation and local 1% Xylocaine with epinephrine. FINDINGS: About 5 cc of clear serous fluid drainage taken, tract extending down to the muscle layer, but the patch was not visible. Two Vicryl sutures deep were removed and the wound was closed primarily with interrupted Nylons preserving the inferior half of the subcuticular closure. OPERATIVE INDICATION: Neck wound drainage 2-3 weeks, status post carotid endarterectomy, neurologically intact. CTA revealing no restenosis and no obvious tract to the patch. DESCRIPTION OF PROCEDURE: The patient was brought to the operating suite. Neck was prepped. 1% Xylocaine was used for local anesthetic. The glue was removed from the neck incision. The upper half of the neck incision was opened and the Monocryl was saved. Thorough irrigation was undertaken with antibiotic irrigation after draining the seroma and then it was roughened up with a gauze dressing, closed with interrupted Nylon sutures. Bandage in place, to recovery room stable. TRANSINT:[id number] Voice Confirmation ID: [id number] DOCUMENT ID: [id number] CAROLINA WANG MD at 1521 CC: NIRMALA WELLER DO [id number] DICTATION DATE: 01/09/20 1758 CARDIOLOGY CLINICAL NURSE SPECIALIST: 01/10/20 0144 ADM IN [facility] [address] [place] [address]
[2020-01-10 16:14] VITALS: BP 159/76
[2020-01-10 17:56] LABS: BILIRUBIN NEGATIVE (NEGATIVE); GLUCOSE NEGATIVE (NEGATIVE); KETONE NEGATIVE (NEGATIVE); NITRITE NEGATIVE (NEGATIVE); UROBILINOGEN NORMAL (NORMAL)
[2020-01-10 17:57] LABS: BACTERIA FEW /hpf (NEGATIVE); EPITHELIAL CELLS 0-5 /hpf (0-5); RED CELLS - URINE 0-5 /hpf (0-5); WHITE CELLS - URINE 0-5 /hpf (NEGATIVE)
[2020-01-10 20:00] VITALS: BP 118/72
[2020-01-11 06:33] LABS: BASOPHILS 0.5 % (0-2); EOSINOPHILS 2.8 % (0-7); HEMATOCRIT 33.4 % (36.0-48.0); HEMOGLOBIN 10.7 g/dL (12-16); IMMATURE GRANULOCYTES 0.3 % (0-5); LYMPHOCYTES 42.7 % (15-50); MCH 28.8 pg (26.0-34.0); MEAN PLATELET VOLUME 8.7 fL (7.4-10.4); MONOCYTES 6.5 % (2-11); NEUTROPHILS 47.2 % (40-80); PLATELET COUNT 279 10x3/uL (130-400); RBC 3.71 10x6/uL (4.00-5.40); RDW 13.9 % (11.5-14.5); WBC 7.9 10x3/uL (4.8-10.8)
[2020-01-11 06:46] LABS: ANION GAP 13.5 mmol/L (8-16); CALCIUM 8.3 mg/dL (8.5-10.1); CARBON DIOXIDE 25.3 mmol/L (21.0-32.0); CREATININE - SERUM 0.9 mg/dL (0.6-1.3); MAGNESIUM - SERUM 1.7 mg/dL (1.8-2.4); PHOSPHOROUS 3.3 mg/dL (2.5-4.9); POTASSIUM - SERUM 3.8 mmol/L (3.5-5.1)
[2020-01-11 08:58] VITALS: BP 153/64
[2020-01-11 11:24] VITALS: BP 152/71
--- NOTE | 2020-01-11 13:51 | MORECARE ---
CASE MANAGEMENT DISCHARGE SUMMARY PATIENT: TONNY FRENCH UNIT: [id number] ADM DATE: 01/07/20 AGE: 75 : 47 SEX: F ROOM/BED: D.2535 AUTHOR: FRANC FUNK PHYSICIAN: REFERRING PHYSICIAN: CAROLINA WANG MD DATE OF SERVICE: 01/11/20 Discharge Plan Patient Name: TONNY FRENCH Facility: [facility]:[place] : 1945 Planned Disposition: Home Anticipated Discharge Date: Discharge Date: Expected LOS: Initial Reviewer: [email or web address] Initial Review Date: 01/07/2020 Generated: 01/11/20 2:50 pm Comments DCP- Discharge Planning Updated by [email or web address]: Shana Rothman on 01/11/20 12:[address] CM SPOKE WITH THE PATIENT REGARDING DISCHARGE PLANNING NEEDS. CM INTRODUCED SELF AND EXPLAINED MY ROLE. THE PATIENT GAVE PERMISSION TO CONTINUE WITH THE ASSESSMENT. SHE WILL BE RETURNING TO HOME AT DISCHARGE. HER WILL PROVIDE TRANSPORTATION TO HOME. SHE HAS A NIECE WHO WILL BECOMING TO STAY WITH HER AT DISCHARGE TO ASSIST W/ CARE IE DRESSING CHANGES ETC. THE PATIENT FEELS SHE WILL BE SAFE AT HOME AND HAS ASSISTANCE IF NEEDED. DENIES ANY NEED FOR HOME HEALTH OR COMMUNITY SERVICES. PCP- [facility] [address]. DME- NONE MARY GUTIERREZ GILLIAN- - [phone] CM TO FOLLOW SHOULD NEED ARISE. Patient Name: TONNY FRENCH Page [id number] at 1351 All edits/amendments must be made on the electronic document DICTATION DATE: 01/11/20 1350 IGNITION EXPERT: DIMITRIOS 01/11/20 1350 RPT#: [id number] DC DATE: STATUS: ADM IN [facility] [address] [place] [address] END OF REPORT
[2020-01-11 15:17] VITALS: BP 136/71
--- NOTE | 2020-01-11 16:30 | NUR ---
PT DISCHARGED HOME VIA WHEELCHAIR. PIV REMOVED WITH CATHETER TIP FULLY INTACT. PT SIGNED PROPER DISCHARGE INSTRUCTIONS AND REMOVED ALL VALUABLES FROM THE ROOM. TELEMETRY REMOVED AND RETURNED.
--- NOTE | 2020-01-12 10:08 | MORECARE ---
CASE MANAGEMENT DISCHARGE SUMMARY PATIENT: TONNY FRENCH UNIT: [id number] ADM DATE: 01/07/20 AGE: 75 : 49 SEX: F ROOM/BED: D.7794 AUTHOR: FRANC FUNK PHYSICIAN: REFERRING PHYSICIAN: CAROLINA WANG MD DATE OF SERVICE: 01/12/20 Discharge Plan Patient Name: TONNY FRENCH Facility: [facility]:[place] : 1945 Planned Disposition: Home Anticipated Discharge Date: Discharge Date: 01/11/2020 Expected LOS: Initial Reviewer: [id number] Initial Review Date: 01/07/2020 Generated: 01/12/20 11:07 am Comments DCP- Discharge Planning Updated by [email or web address]: Shana Rothman on 01/11/20 12:[address] CM SPOKE WITH THE PATIENT REGARDING DISCHARGE PLANNING NEEDS. CM INTRODUCED SELF AND EXPLAINED MY ROLE. THE PATIENT GAVE PERMISSION TO CONTINUE WITH THE ASSESSMENT. SHE WILL BE RETURNING TO HOME AT DISCHARGE. HER WILL PROVIDE TRANSPORTATION TO HOME. SHE HAS A NIECE WHO WILL BECOMING TO STAY WITH HER AT DISCHARGE TO ASSIST W/ CARE IE DRESSING CHANGES ETC. THE PATIENT FEELS SHE WILL BE SAFE AT HOME AND HAS ASSISTANCE IF NEEDED. DENIES ANY NEED FOR HOME HEALTH OR COMMUNITY SERVICES. PCP- [facility] OR [facility] [address]. DME- NONE [facility]- MATT GILLIAN- - [phone] CM TO FOLLOW SHOULD NEED ARISE. Last DP export: 01/11/20 12:51 p Patient Name: TONNY FRENCH Page [id number] at 1008 All edits/amendments must be made on the electronic document DICTATION DATE: 01/12/20 1007 AFTER SCHOOL DRIVER: DIMITRIOS 01/12/20 1007 RPT#: [id number] DC DATE:01/11/20 STATUS: DIS IN [facility] [address] [place] [address] END OF REPORT
== END 2020-01-11 16:31 | disposition home or self-care (01) | DRG 921 ==
LOC: D.ER 15:04 → D.M2 16:17 → D.ER 16:50 → D.M2 01-11 16:31
PROVIDERS: Family Medicine; ADMIT Thoracic Surgery (Cardiothoracic Vascular Surgery); ATTEND Thoracic Surgery (Cardiothoracic Vascular Surgery)
DX: T81.89XA Other complications of procedures, not elsewhere classified, initial encounter (principal); Y83.9 Surgical procedure, unspecified as the cause of abnormal reaction of the patient, or of later complication, without mention of misadventure at the time of the procedure; E78.5 Hyperlipidemia, unspecified; R73.03 Prediabetes; G50.0 Trigeminal neuralgia